=== PATIENT | female | born 1980 | race Caucasian/White ===

== ENCOUNTER → 2019-02-17 13:51 | Outpatient (CLI) | payer OTHER, SELFPAY ==
--- NOTE | 2019-02-17 | PATH_ITS ---
Note [facility] Accession Number: [id number] TESTS RESULT FLAG UNITS REF RANGE LAB Clinician Provided Cytology Information No. of containers..01 ThinPrep Vial No. of containers..00 Previously Prepared Cytology Slide RIGHT THYROID DIAGNOSIS: 02 RIGHT THYROID INADEQUATE, INSUFFICIENT CELLS FOR STUDY. [place] CATEGORY I. UNSATISFACTORY. Pathologist ICD10: 02 E04.2 02 Tierra Romero MD, Pathologist NPI- [id number] Michel Kang, Psychiatric Registered Nurse ([facility]) 01 30 CC, RED, CLEAR RECEIVED: 1O ALCOHOL FIXED AND 10 QUICK STAINED SLIDES WITH 1 RNA FOR FURTHER TESTING. /VDU FLAG LEGEND: L-Low Normal,H-High Normal,LL-Alert Low,HH-Alert High <-Panic Low,>-Panic High,A-Abnormal,AA-Critical Abnormal Performed at: 01 =Z [facility] [address], [place] [address] Abrahan Hollis MD, 02 [facility] [address] [place] [phone] Marycarmen Brar MD, Specimen Comment: A duplicate report has been generated due to demographic updates. Performed at: 01 [facility] [address], [place], [place] [id number] MD Abrahan Hollis MD Phone: [phone]
--- NOTE | 2019-02-17 | DI.US.S_ITS ---
PROCEDURE: US FINE NEEDLE ASPIRATION INDICATIONS: NONTOXIC MULTINODULAR GOITER TECHNIQUE: The indications, alternatives, benefits, risks, and complications of the procedure were explained to the patient. Written informed consent was obtained and placed in the chart. The area of interest was examined sonographically and a site was chosen for ultrasound guided percutaneous sampling. The skin was prepared and draped in the usual fashion, and anesthetized with 1% lidocaine infiltrated from the skin down to the lesion. Multiple passes were then performed, with contents emptied into an appropriate pathology specimen container. A bandage was applied to the area of access at completion of the study. COMPARISON: None. FINDINGS: Location(s) of lesion(s) sampled: Right thyroid lobe [place]: 25 gauge hypodermic needles. Number of passes: 11 Medications: 1% lidocaine for local anaesthesia. Complications: None. IMPRESSION: Successful ultrasound-guided right thyroid complex nodule fine needle aspiration, with cytology results pending. Dictated by: Luis M Taylor M.D. on 02/17/2019 at 16:17 Approved by: Luis M Taylor M.D. on 02/17/2019 at 16:17
== END ==
PROVIDERS: PCP Family Medicine; Visit Provider Otolaryngology
DX: E04.2 Nontoxic multinodular goiter (principal)
CPT/HCPCS: 10005